=== PATIENT | female | born 1955 | race Caucasian/White ===

== ENCOUNTER 2021-07-15 11:04 | Outpatient (CLI) | payer BC | END 2021-07-15 11:05 | disposition home or self-care (01) | LOC: CSHMAMMO 11:04 | PROVIDERS: ATTEND Chiropractor | DX: Z12.31 Encounter for screening mammogram for malignant neoplasm of breast (principal) | CPT/HCPCS: 77063; 77067 ==

== ENCOUNTER 2022-01-30 08:45 | Outpatient (CLI) | payer BC | END 2022-01-30 08:46 | disposition home or self-care (01) | LOC: CSHULT 08:45 | PROVIDERS: ATTEND Internal Medicine Gastroenterology | DX: R10.13 Epigastric pain (principal); M79.7 Fibromyalgia; Z12.11 Encounter for screening for malignant neoplasm of colon; R14.0 Abdominal distension (gaseous); K76.89 Other specified diseases of liver | CPT/HCPCS: 76700 ==

== ENCOUNTER 2023-03-23 10:04 | Outpatient (CLI) | payer BC | END 2023-03-23 10:05 | disposition home or self-care (01) | LOC: CSHMAMMO 10:04 | PROVIDERS: ATTEND Chiropractor | DX: Z12.31 Encounter for screening mammogram for malignant neoplasm of breast (principal) | CPT/HCPCS: 77063; 77067 ==

== ENCOUNTER 2023-04-09 08:14 | Outpatient (CLI) | payer BC | END 2023-04-09 08:15 | disposition home or self-care (01) | LOC: CSHULT 08:14 | PROVIDERS: ATTEND Physician Assistant Medical | DX: R10.13 Epigastric pain (principal); K44.9 Diaphragmatic hernia without obstruction or gangrene; R14.0 Abdominal distension (gaseous) | CPT/HCPCS: 76700 ==

== ENCOUNTER 2025-02-13 10:32 | Outpatient (CLI) | payer BC ==
[2025-02-13 11:20] LABS: Estimated GFR - POC 62.0
== END 2025-02-13 10:33 | disposition home or self-care (01) ==
LOC: CSHMRI 10:32
PROVIDERS: ATTEND Specialist
DX: D05.12 Intraductal carcinoma in situ of left breast (principal)
CPT/HCPCS: 36415; 82565; C8908